=== PATIENT | male | born 1995 | race Native Hawaiian/Other Pacific Islander ===

== ENCOUNTER 2018-05-23 12:27 | Emergency (ER) | payer OTHER ==
[2018-05-23 12:39] VITALS: BP 160/78
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
--- NOTE | 2018-05-23 15:03 | XRay Report ---
CERVICAL SPINE, 3 views: History: Neck pain. Findings: The vertebral bodies, disk spaces, posterior elements and prevertebral soft tissues are unremarkable. The dens is intact. No acute fracture or malalignment is identified. Impression: 1. No evidence for acute injury to the cervical spine.
[2018-05-23] MEDS ORDERED: TORADOL IM ONE (15:08)
== END 2018-05-23 16:02 | disposition home or self-care (01) ==
LOC: ED 12:27
DX: M54.2 Cervicalgia (principal); V89.2XXA Person injured in unspecified motor-vehicle accident, traffic, initial encounter; Y93.89 Activity, other specified; Y92.89 Other specified places as the place of occurrence of the external cause; Y99.8 Other external cause status
CPT/HCPCS: 72040; 96372; 99283; J1885